=== PATIENT | male | born 1970 | race Caucasian/White ===

== ENCOUNTER 2017-02-27 15:57 | Emergency (ER) | payer SELFPAY ==
[~2017-02-27] VITALS: Ht 182.9 cm; Wt 137.0 kg
[2017-02-27 16:00] VITALS: BP 165/111
[2017-02-27] MEDS ORDERED: FLUORESCEIN OPHTHALMIC 1 MG STRIP EACHEYE ONE (16:30)
[2017-02-27] MEDS ORDERED: PLEASE ENTER ALLERGIES MC SCH ×2 (16:30)
[2017-02-27] MEDS ORDERED: PROPARACAINE OPHTH 0.5%, 15ML EACHEYE ONE (16:30)
[2017-02-27] MEDS ORDERED: FLUORESCEIN OPHTHALMIC 1 MG STRIP ONE ×2 (16:31→17:00)
[2017-02-27] MEDS ORDERED: PROPARACAINE OPHTH 0.5%, 15ML ONE (16:31)
== END 2017-02-27 17:56 | disposition home or self-care (01) ==
LOC: ED 17:40
DX: S05.01XA Injury of conjunctiva and corneal abrasion without foreign body, right eye, initial encounter (principal); S05.02XA Injury of conjunctiva and corneal abrasion without foreign body, left eye, initial encounter; H16.9 Unspecified keratitis; H10.023 Other mucopurulent conjunctivitis, bilateral; X58.XXXA Exposure to other specified factors, initial encounter; Y93.89 Activity, other specified; Y99.8 Other external cause status; Y92.89 Other specified places as the place of occurrence of the external cause
CPT/HCPCS: 99283